=== PATIENT | female | born 1975 | race Hispanic/Latino ===

== ENCOUNTER 2020-05-05 14:21 | Emergency (ER) | payer SELFPAY ==
[2020-05-05] MEDS ORDERED: Ketorolac Tromethamine 30 MG/ML VIAL ONE (15:24)
--- NOTE | 2020-05-05 15:58 | RAD ---
CERVICAL SPINE: 05/05/20 Three views. HISTORY: Neck pain. Cervical vertebrae maintain normal height and alignment. Disc spaces are preserved. Mild spurring is seen with an anterior osteophyte at the C5-6 level. Posterior elements are normally aligned with mild facet hypertrophy. IMPRESSION: There are mild degenerative changes. Cervical spine otherwise unremarkable. POS: [id number]
== END 2020-05-05 16:18 | disposition home or self-care (01) ==
LOC: ERS 14:21
DX: S16.1XXA Strain of muscle, fascia and tendon at neck level, initial encounter (principal)
CPT/HCPCS: 72040; 96372; J1885